=== PATIENT | female | born 1975 | race Caucasian/White ===

== ENCOUNTER 2025-05-30 17:19 | Emergency (ER) | payer OTHER ==
[~2025-05-30] VITALS: Ht 167.6 cm; Wt 108.9 kg
[2025-05-30] MEDS ORDERED: Ketorolac Tromethamine 30mg Vial IM ONE (17:40)
[2025-05-30] MEDS ORDERED: HYDROcodone 5-APAP 325 TAB PO ONE (17:45)
[2025-05-30] MEDS ORDERED: RX Prepack 6 Tabs Oxycodone 5mg UD ONE (18:45)
[2025-05-30] MEDS ORDERED: Percocet 5-3251 EACH PO (19:36)
== END 2025-05-30 19:46 | disposition home or self-care (01) ==
LOC: ER 17:19
DX: S82.142A Displaced bicondylar fracture of left tibia, initial encounter for closed fracture (principal); Z88.2 Allergy status to sulfonamides; Z91.048 Other nonmedicinal substance allergy status; W17.89XA Other fall from one level to another, initial encounter
CPT/HCPCS: 73562-LT; 73590; 96372; 99283-25; A9270; J1885